=== PATIENT | female | born 1960 | race Caucasian/White ===

== ENCOUNTER 2017-05-21 04:28 | Inpatient (IN) | payer MEDICARE, OTHER ==
[~2017-05-21] VITALS: Ht 170.2 cm; Wt 89.1 kg
[2017-05-21] MEDS ORDERED: IPRATROPIUM BROMIDE 0.02% 2.5 ML NEB NEB STA (04:47)
[2017-05-21] MEDS ORDERED: ALBUTEROL SULF 0.083% NEB SOLN 3 ML NEB NEB STA (04:47)
[2017-05-21] MEDS ORDERED: METHYLPREDNISOLONE SOD SUCC 125 MG/2ML VIAL IV STA (04:56)
[2017-05-21] MEDS ORDERED: ASPIRIN 81 MG CHEW TAB PO ONE (05:00)
[2017-05-21] MEDS ORDERED: NITROGLYCERIN 2% OINT 1 GM PKT TOP ONE (05:00)
[2017-05-21 05:23] LABS: BASOPHILS # (AUTO) 0.1 (0.0-0.1); BASOPHILS % 0.9 % (0.0-1.0); EOSINOPHILS # (AUTO) 0.5 (0.0-0.4); EOSINOPHILS % 3.5 % (0.0-6.0); HEMOGLOBIN 12.9 g/dL (12.0-16.0); LYMPHOCYTES # (AUTO) 1.5 (1.0-3.2); LYMPHOCYTES % 10.1 % (18.0-39.1); MEAN CORPUSCULAR HEMOGLOBIN 32.1 pg (28-32); MEAN CORPUSCULAR HGB CONC 33.9 g/dL (31-35); MEAN CORPUSCULAR VOLUME 94.5 fL (81-99); MONOCYTES # (AUTO) 0.6 (0.2-0.8); MONOCYTES % 3.7 % (4.4-11.3); NEUTROPHILS # (AUTO) 12.2 (2.1-6.9); NEUTROPHILS % 81.5 % (38.7-80.0); PLATELET COUNT 425 x10e3/uL (140-360); RED BLOOD COUNT 4.02 x10e6/uL (3.6-5.1); RED CELL DISTRIBUTION WIDTH 13.6 % (11.7-14.4)
[2017-05-21 05:32] LABS: INR 1.01; PROTHROMBIN TIME 12.5 seconds (11.9-14.5)
[2017-05-21 05:33] LABS: PARTIAL THROMBOPLASTIN TIME 25.5 seconds (23.8-35.5)
[2017-05-21 05:42] LABS: ALBUMIN 3.4 g/dL (3.5-5.0); ALBUMIN/GLOBULIN RATIO 0.8 (0.8-2.0); ANION GAP 17.4 mmol/L (8-16); CALCIUM 8.9 mg/dL (8.4-10.2); CREATININE, SERUM 0.97 mg/dL (0.57-1.11); MAGNESIUM 1.9 MG/DL (1.3-2.1); POTASSIUM 3.4 mmol/L (3.5-5.1)
[2017-05-21 05:44] LABS: B-TYPE NATRIURETIC PEPTIDE2 535.6 pg/mL (0-100)
[2017-05-21 05:49] LABS: CREATINE KINASE MB 2.8 ng/mL (0-5.0)
--- NOTE | 2017-05-21 06:05 | Diagnostic Imaging Report ---
EXAMINATION: CHEST SINGLE (PORTABLE) INDICATION: Shortness of breath COMPARISON: None FINDINGS: TUBES and LINES: None. LUNGS: Lungs are not well inflated. There are bibasilar atelectasis. There is perihilar interstitial opacities, consistent with interstitial edema. PLEURA: No pleural effusion or pneumothorax. HEART AND MEDIASTINUM: Cardiac size is mildly enlarged. BONES AND SOFT TISSUES: No acute osseous lesion. Soft tissues are unremarkable. UPPER ABDOMEN: No free air under the diaphragm. IMPRESSION: Mild cardiogenic pulmonary edema Signed by: Dr. Hever Multani M.D. on 05/21/2017 6:02 AM
[2017-05-21] MEDS ORDERED: FUROSEMIDE INJ 10 MG/ML 4 ML VIAL IV ONE (06:15)
[2017-05-21 06:46] LABS: BILIRUBIN,URINE NEGATIVE (NEGATIVE); CLARITY,URINE CLEAR (CLEAR); COLOR,URINE YELLOW (YELLOW); KETONES,URINE NEGATIVE (NEGATIVE); LEUKOCYTE ESTERASE ,URINE NEGATIVE (NEGATIVE); NITRITE,URINE NEGATIVE (NEGATIVE); PROTEIN,URINE DIPSTICK 2+ (NEGATIVE); URINE UROBILINOGEN 0.2 mg/dL (0.2 - 1)
[2017-05-21] MEDS: AZITHROMYCIN 500MG/NS 250 ML 250 ML IV SCH ×2 (06:52→08:29)
[2017-05-21] MEDS: CEFTRIAXONE SOD 1 GM VIAL IV SCH ×2 (06:52→18:30)
[2017-05-21] MEDS ORDERED: ONDANSETRON HCL INJ 2 MG/ML VIAL IV STA (07:01)
[2017-05-21] MEDS ORDERED: FAMOTIDINE 20 MG/2 ML VIAL IV SCH (07:15)
[2017-05-21] MEDS ORDERED: ONDANSETRON HCL INJ 2 MG/ML VIAL IV PRN (07:15)
[2017-05-21] MEDS ORDERED: POTASSIUM CHLORIDE 20 MEQ TAB CR PO STA (07:17)
[2017-05-21 07:18] LABS: EPITHELIAL CELLS,URINE RARE /LPF; WBC,URINE (MAN) 0-5 /HPF (0-5)
[2017-05-21 07:20] LABS: RBC,URINE 21-50 /HPF (0-5)
[2017-05-21 07:21] LABS: BACTERIA,URINE RARE /HPF
--- OUTSIDE RECORDS SUMMARY | 2017-05-21 07:31 | XMS REPORT ---
Author Author [facility] Address Unknown Phone Unavailable Care Team Providers Care Business Systems Analyst Name Role Phone TOÑA PERKINS Unavailable Unavailable Problems This patient has no known problems. Allergies, Adverse Reactions, Alerts This patient has no known allergies or adverse reactions. Medications This patient has no known medications. Results Test Description Test Time Test Comments Text Results Atomic Results Result Comments CHEST SINGLE (PORTABLE) [place] [address] Patient Name: AMRIK KEITH MR #: [id number] : 1960 Age/Sex: 56/F Req #: [id number] Adm Physician: Ordered by: TOÑA PERKINS MD Report #: [id number] Location: ER Room/Bed: Procedure: [id number] DX/CHEST SINGLE (PORTABLE) Exam Date: 05/21/17 Exam Time: 0525 REPORT STATUS: Signed EXAMINATION: CHEST SINGLE (PORTABLE) INDICATION: Shortness of breath COMPARISON: None FINDINGS: TUBES and LINES: None. LUNGS: Lungs are not well inflated. There are bibasilar atelectasis. There is perihilar interstitial opacities, consistent with interstitial edema. PLEURA: No pleural effusion or pneumothorax. HEART AND MEDIASTINUM: Cardiac size is mildly enlarged. BONES AND SOFT TISSUES: No acute osseous lesion. Soft tissues are unremarkable. UPPER ABDOMEN: No free air under the diaphragm. IMPRESSION: Mild cardiogenic pulmonary edema Signed by: Dr. Hever Multani M.D. on 05/21/2017 6:02 AM Dictated By: HEVER ECKERT MD 1 Transcribed By: LINDA on 05/21/17601 COPY TO: TOÑA PERKINS MD
[2017-05-21] MEDS ORDERED: DEXTROSE 50% SYRINGE 50 ML IV PRN (07:45)
[2017-05-21] MEDS: INSULIN REGULAR, HUMAN 100 UNIT/1 ML 3ML VIAL SQ SCH ×4 (08:14→21:37)
--- NOTE | 2017-05-21 08:25 | History and Physical ---
PRIMARY CARE PHYSICIAN: Dr. Dotson CHIEF COMPLAINT: Shortness of breath and cough. HISTORY OF PRESENT ILLNESS: This is a 56-year-old woman with a history of diabetes mellitus and diabetic ophthalmopathy with legal blindness, now developing shortness of breath while ambulating. She does have left above-knee amputation and ambulates by wheelchair. She has had a cough for a few days but no leg edema. She denies any chest pain. She is admitted for further evaluation and management. PAST MEDICAL HISTORY 1. Diabetes mellitus, type 2. 2. Hypertension. 3. Diabetic ophthalmopathy with legal blindness. 4. Peripheral vascular disease, status post left above-knee amputation. 5. Asthma. 6. Allergic rhinitis. PAST SURGICAL HISTORY 1. Above-knee amputation, left leg. 2. Tonsillectomy. ALLERGIES: PER ELECTRONIC MEDICAL RECORD. FAMILY HISTORY AND SOCIAL HISTORY: The patient is a . She has 3 children. Occasional alcohol. Currently on Chantix for cigarette cessation, but she continues to smoke cigarettes. MEDICATIONS: Per electronic medical record. REVIEW OF SYSTEMS: Denies any dizziness. PHYSICAL EXAMINATION VITAL SIGNS: Reviewed. GENERAL APPEARANCE: Tired-appearing woman resting in bed. HEENT: Anicteric. CARDIOVASCULAR: Normal S1 and S2. LUNGS: Breath sounds are reduced throughout. No wheezing. ABDOMEN: Soft, nontender, nondistended. EXTREMITIES: She has a left above-knee amputation, well healed. Right leg: She has no edema. She has a lot of dirt on the right foot sole. SKIN: Dry. PSYCHIATRIC: Normal affect. LABS: Reviewed. MEDICATIONS: Reviewed. ASSESSMENT AND PLAN: This is a 56-year-old woman. 1. Cardiogenic pulmonary edema. Will diurese the patient. Will obtain a 2-D echocardiogram. 2. Acute asthma exacerbation. Will treat the patient with nebs, steroids, antibiotics, antitussive medications. 3. Hypokalemia. Replace and recheck. 4. Acute kidney injury. Will reassess renal function later today. 5. Diabetes mellitus, type 2. Will get hemoglobin A1c and lipid panel and use sliding-scale insulin. 6. Elevated B-type natriuretic peptide/congestive heart failure. Will obtain echocardiogram and follow up. 7. Influenza screen negative. 8. Ambulatory dysfunction. Will consult physical therapy. 9. Prophylaxis. Will use Lovenox and Pepcid. 10. Disposition: Monitor closely. Follow up echo. Job#: [id number] MH
[2017-05-21] MEDS: ASPIRIN 325 MG TAB EC PO SCH (08:28)
[2017-05-21] MEDS: LORATADINE 10 MG TAB PO SCH (09:25)
[2017-05-21] MEDS: BENZONATATE 100 MG CAP PO SCH ×3 (09:25→20:48)
[2017-05-21 10:50] VITALS: BP 150/89
[2017-05-21] MEDS ORDERED: CHANTIX1 MG PO (11:32)
[2017-05-21] MEDS ORDERED: GABAPENTIN300 MG PO (11:32)
[2017-05-21] MEDS ORDERED: METHADONE HCL10 MG PO (11:32)
[2017-05-21] MEDS ORDERED: NORCO 10-325 T1 EACH PO (11:32)
[2017-05-21] MEDS ORDERED: LISINOPRIL10 MG PO (11:32)
[2017-05-21] MEDS ORDERED: PLAVIX75 MG PO (11:32)
[2017-05-21] MEDS ORDERED: ZOLOFT50 MG PO (11:32)
[2017-05-21] MEDS ORDERED: HUMALOG100 UNIT/1 SQ (11:32)
[2017-05-21] MEDS ORDERED: LANTUS 3ML100 UNITS/ SQ (11:32)
[2017-05-21] MEDS ORDERED: ASPIRIN81 MG PO (11:32)
[2017-05-21] MEDS: NITROGLYCERIN 2% OINT 1 GM PKT TOP SCH ×2 (14:00→18:00)
[2017-05-21] MEDS: HYDROCODONE/APAP 10MG-325MG TAB PO PRN ×2 (14:25→20:50)
[2017-05-21] MEDS: METHYLPREDNISOLONE SOD SUCC 125 MG/2ML VIAL IV SCH ×2 (14:30→20:50)
[2017-05-21] MEDS: GUAIFENESIN/DEXTROMETHORPHAN LIQD 5 ML UDC NG SCH ×2 (14:30→22:00)
[2017-05-21 15:33] LABS: CREATINE KINASE MB 4.6 ng/mL (0-5.0)
[2017-05-21 16:13] VITALS: BP 184/98
[2017-05-21] MEDS ORDERED: NON-FORMULARY MEDICATION (Insulin Lispro (Humalog) 10 UNITS) SQ SCH (16:30)
[2017-05-21] MEDS ORDERED: INSULIN LISPRO 100 UNIT/1 ML 3ML VIAL SQ SCH (16:30)
[2017-05-21] MEDS: FAMOTIDINE 20 MG TAB PO SCH (16:30)
[2017-05-21] MEDS: ENOXAPARIN SOD INJ 40 MG/0.4 ML SYR SC SCH (17:00)
[2017-05-21] MEDS: METHADONE HCL 10 MG TAB PO SCH ×3 (17:00→20:24)
[2017-05-21] MEDS: ASPIRIN 81 MG CHEW TAB PO SCH (17:00)
[2017-05-21] MEDS: GABAPENTIN 300 MG CAP PO SCH (17:00)
[2017-05-21] MEDS: ALBUTEROL SULF 0.083% NEB SOLN 3 ML NEB NEB SCH (19:45)
[2017-05-21] MEDS: IPRATROPIUM BROMIDE 0.02% 2.5 ML NEB NEB SCH (19:45)
[2017-05-21 20:00] VITALS: BP 189/109
[2017-05-21] MEDS: SERTRALINE HCL 50 MG TAB PO SCH (20:49)
[2017-05-21] MEDS ORDERED: INSULIN DETEMIR 100 UNIT/ML PEN SQ SCH (21:00)
[2017-05-21 23:29] VITALS: BP 189/109
[2017-05-22] VITALS (7 sets, daily range): BP systolic 98–207; BP diastolic 68–156
[2017-05-22] MEDS: IPRATROPIUM BROMIDE 0.02% 2.5 ML NEB NEB SCH ×7 (00:15→23:00)
[2017-05-22] MEDS: ALBUTEROL SULF 0.083% NEB SOLN 3 ML NEB NEB SCH ×7 (00:15→23:00)
[2017-05-22] MEDS: ATENOLOL 50 MG TAB PO PRN ×2 (00:40→05:42)
[2017-05-22] MEDS: NITROGLYCERIN 2% OINT 1 GM PKT TOP SCH ×4 (00:41→17:18)
[2017-05-22] MEDS: PROMETHAZINE 12.5MG/ NACL 0.9% 12.5 MG/50 ML BAG IV PRN ×2 (00:41→06:30)
[2017-05-22] MEDS: HYDROCODONE/APAP 10MG-325MG TAB PO PRN (02:40)
[2017-05-22] MEDS: METHYLPREDNISOLONE SOD SUCC 125 MG/2ML VIAL IV SCH ×3 (05:41→21:45)
[2017-05-22] MEDS: GUAIFENESIN/DEXTROMETHORPHAN LIQD 5 ML UDC NG SCH ×3 (05:41→21:46)
[2017-05-22] MEDS: CEFTRIAXONE SOD 1 GM VIAL IV SCH ×2 (05:41→18:19)
[2017-05-22 07:00] LABS: BASOPHILS % 0.2 % (0.0-1.0); HEMATOCRIT 37.5 % (34.2-44.1); HEMOGLOBIN 12.6 g/dL (12.0-16.0); LYMPHOCYTES # (AUTO) 0.8 (1.0-3.2); LYMPHOCYTES % 4.6 % (18.0-39.1); MEAN CORPUSCULAR HGB CONC 33.6 g/dL (31-35); MEAN CORPUSCULAR VOLUME 95.2 fL (81-99); MONOCYTES # (AUTO) 0.4 (0.2-0.8); MONOCYTES % 2.4 % (4.4-11.3); NEUTROPHILS # (AUTO) 16.5 (2.1-6.9); NEUTROPHILS % 92.1 % (38.7-80.0); PLATELET COUNT 447 x10e3/uL (140-360); RED BLOOD COUNT 3.94 x10e6/uL (3.6-5.1); RED CELL DISTRIBUTION WIDTH 13.4 % (11.7-14.4)
[2017-05-22] MEDS ORDERED: SODIUM CHLORIDE 0.45% 1,000 ML IV ONE (07:15)
--- NOTE | 2017-05-22 07:24 | Progress Note ---
DATE: May 22, 2017 ADDENDUM Creatinine kinase has increased from [address] up to 1770. This is acute rhabdomyolysis. Will treat her IV fluids. Job#: [id number] MALINDA
[2017-05-22 07:39] LABS: ALANINE AMINOTRANSFERASE 21 IU/L (0-55); ALBUMIN 3.3 g/dL (3.5-5.0); ALBUMIN/GLOBULIN RATIO 0.8 (0.8-2.0); ALKALINE PHOSPHATASE 80 IU/L (40-150); BLOOD UREA NITROGEN 27 mg/dL (7-26); BUN/CREATININE RATIO 31 (6-25); CALCIUM 9.5 mg/dL (8.4-10.2); CARBON DIOXIDE 25 mmol/L (22-29); CHLORIDE 102 mmol/L (98-107); CHOL/HDL RATIO 5.2 (3.0-3.6); CHOLESTEROL 241 MD/DL (0-199); CREATININE, SERUM 0.88 mg/dL (0.57-1.11); EST GLOMERULAR FILTRATION RATE > 60 ML/MIN (60-); GLUCOSE 210 mg/dL (74-118); HDL CHOLESTEROL 46 MG/DL (40-60); LDL CHOLESTEROL 164 MG/DL (60-130); SODIUM 138 mmol/L (136-145); TRIGLYCERIDES 153 MG/DL (0-149)
[2017-05-22] MEDS ORDERED: INSULIN DETEMIR 100 UNIT/ML PEN SQ SCH (09:00)
[2017-05-22] MEDS: METHADONE HCL 10 MG TAB PO SCH (09:00)
[2017-05-22] MEDS: NIFEDIPINE CR 30 MG TAB PO SCH ×3 (09:58→21:45)
[2017-05-22] MEDS: LABETALOL HCL 100 MG TAB PO SCH ×3 (09:58→21:46)
[2017-05-22] MEDS: INSULIN LISPRO 100 UNIT/1 ML 3ML VIAL SQ SCH ×3 (09:59→16:30)
[2017-05-22] MEDS: FAMOTIDINE 20 MG TAB PO SCH ×2 (09:59→17:17)
[2017-05-22] MEDS: VARENICLINE 1 MG TAB PO SCH ×2 (10:00→12:40)
[2017-05-22] MEDS: GUAIFENESIN 600MG/DEXTROMETHORPHAN 30MG TABSR PO SCH ×2 (10:00→17:17)
[2017-05-22] MEDS: GABAPENTIN 300 MG CAP PO SCH ×2 (10:00→17:17)
[2017-05-22] MEDS: ASPIRIN 81 MG CHEW TAB PO SCH ×2 (10:00→17:17)
[2017-05-22] MEDS: LORATADINE 10 MG TAB PO SCH (10:00)
[2017-05-22] MEDS: ASPIRIN 325 MG TAB EC PO SCH (10:00)
[2017-05-22] MEDS: INSULIN REGULAR, HUMAN 100 UNIT/1 ML 3ML VIAL SQ SCH ×4 (10:00→21:00)
[2017-05-22] MEDS: AZITHROMYCIN 500MG/NS 250 ML 250 ML IV SCH (10:00)
[2017-05-22] MEDS: CLOPIDOGREL BISULFATE 75 MG TAB PO SCH (10:00)
[2017-05-22] MEDS: INSULIN DETEMIR 100 UNIT/ML PEN SQ SCH ×2 (10:01→22:00)
[2017-05-22] MEDS: BENZONATATE 100 MG CAP PO SCH ×3 (10:01→21:46)
--- NOTE | 2017-05-22 11:24 | Progress Note ---
DATE: May 22, 2017 TIME: 7:03 a.m. OVERNIGHT: Elevated blood pressure and headache. REVIEW OF SYSTEMS: Denies any dizziness. She also has some nausea and vomiting. PHYSICAL EXAMINATION VITAL SIGNS: Have been reviewed. GENERAL: A tired-appearing woman resting in bed. HEENT: Anicteric. CARDIOVASCULAR: Normal S1 and S2. LUNGS: Moderate breath sounds. ABDOMEN: Soft, nontender and nondistended. EXTREMITIES: She has a left above-knee amputation well-healed. She has right leg with no edema. SKIN: Dry. PSYCHIATRIC: Normal affect. LABS: Reviewed. MEDICATIONS: Reviewed. ASSESSMENT: A 56-year-old woman with: 1. Hypertensive emergency with headache: Will change beta ramirez and add calcium channel ramirez. 2. Acute exacerbation of asthma: Continue medication regimen and reduce steroids. Continue nebs and antibiotics, and other medications. Continue antitussive medications. 3. Nausea: Continue Phenergan. 4. Hypokalemia: Continue to replace and recheck. 5. Acute kidney injury: Follow up labs. 6. Diabetes mellitus, type 2: Follow up hemoglobin A1c and lipid panel. 7. Elevated BNP/congestive heart failure: Follow up echocardiogram. 8. Influenza screen negative. 9. Ambulatory dysfunction: Continue physical therapy. PLAN 1. Continue medication regimen. 2. Control blood pressure. 3. Follow up echocardiogram. 4. Follow up labs. Job#: [id number] MALINDA
[2017-05-22] MEDS: ENOXAPARIN SOD INJ 40 MG/0.4 ML SYR SC SCH (17:17)
[2017-05-22] MEDS: SERTRALINE HCL 50 MG TAB PO SCH (21:46)
[2017-05-23] VITALS (9 sets, daily range): BP systolic 111–157; BP diastolic 54–87
[2017-05-23] MEDS: NITROGLYCERIN 2% OINT 1 GM PKT TOP SCH ×4 (01:00→17:21)
[2017-05-23] MEDS: IPRATROPIUM BROMIDE 0.02% 2.5 ML NEB NEB SCH ×6 (03:00→23:30)
[2017-05-23] MEDS: ALBUTEROL SULF 0.083% NEB SOLN 3 ML NEB NEB SCH ×6 (03:00→23:30)
[2017-05-23] MEDS: CEFTRIAXONE SOD 1 GM VIAL IV SCH ×2 (06:32→18:33)
[2017-05-23] MEDS: GUAIFENESIN/DEXTROMETHORPHAN LIQD 5 ML UDC NG SCH ×3 (06:32→21:15)
[2017-05-23] MEDS: INSULIN LISPRO 100 UNIT/1 ML 3ML VIAL SQ SCH ×3 (07:30→16:30)
[2017-05-23 09:15] LABS: BASOPHILS % 0.1 % (0.0-1.0); HEMOGLOBIN 11.2 g/dL (12.0-16.0); LYMPHOCYTES # (AUTO) 1.1 (1.0-3.2); LYMPHOCYTES % 7.2 % (18.0-39.1); MEAN CORPUSCULAR HEMOGLOBIN 31.6 pg (28-32); MEAN CORPUSCULAR HGB CONC 32.9 g/dL (31-35); MONOCYTES # (AUTO) 0.6 (0.2-0.8); NEUTROPHILS # (AUTO) 13.2 (2.1-6.9); NEUTROPHILS % 88.2 % (38.7-80.0); PLATELET COUNT 328 x10e3/uL (140-360); RED BLOOD COUNT 3.54 x10e6/uL (3.6-5.1); RED CELL DISTRIBUTION WIDTH 13.7 % (11.7-14.4)
[2017-05-23] MEDS: SODIUM CHLORIDE 0.9% 1000ML 1,000 ML IV SCH ×2 (09:33→17:19)
[2017-05-23] MEDS: VARENICLINE 1 MG TAB PO SCH ×2 (09:34→12:20)
[2017-05-23] MEDS: FAMOTIDINE 20 MG TAB PO SCH ×2 (09:34→16:43)
[2017-05-23] MEDS: AZITHROMYCIN 500MG/NS 250 ML 250 ML IV SCH (09:34)
[2017-05-23] MEDS: ASPIRIN 81 MG CHEW TAB PO SCH ×2 (09:34→16:43)
[2017-05-23] MEDS: LORATADINE 10 MG TAB PO SCH (09:34)
[2017-05-23] MEDS: METHYLPREDNISOLONE SOD SUCC 125 MG/2ML VIAL IV SCH ×2 (09:34→21:13)
[2017-05-23] MEDS: ASPIRIN 325 MG TAB EC PO SCH (09:34)
[2017-05-23] MEDS: GUAIFENESIN 600MG/DEXTROMETHORPHAN 30MG TABSR PO SCH ×2 (09:35→16:44)
[2017-05-23] MEDS: CLOPIDOGREL BISULFATE 75 MG TAB PO SCH (09:35)
[2017-05-23] MEDS: GABAPENTIN 300 MG CAP PO SCH ×2 (09:35→16:44)
[2017-05-23] MEDS: METHADONE HCL 10 MG TAB PO SCH ×2 (09:35→16:43)
[2017-05-23] MEDS: NIFEDIPINE CR 30 MG TAB PO SCH ×2 (09:39→21:13)
[2017-05-23] MEDS: BENZONATATE 100 MG CAP PO SCH ×3 (09:39→21:13)
[2017-05-23] MEDS: LABETALOL HCL 100 MG TAB PO SCH ×2 (09:39→21:14)
[2017-05-23] MEDS: INSULIN REGULAR, HUMAN 100 UNIT/1 ML 3ML VIAL SQ SCH ×4 (10:01→21:15)
--- NOTE | 2017-05-23 12:55 | Progress Note ---
DATE: May 23, 2017 TIME: 8:15 a.m. OVERNIGHT: No events. The patient is short of breath. REVIEW OF SYSTEMS: Denies any dizziness. VITAL SIGNS: Reviewed. PHYSICAL EXAMINATION GENERAL: A tired-appearing woman resting in bed. HEENT: Anicteric. CARDIOVASCULAR: Normal S1 and S2. LUNGS: Moderate breath sounds. ABDOMEN: Soft, nontender and nondistended. EXTREMITIES: She has a left above-knee amputation. Right leg has no edema. SKIN: Dry. PSYCHIATRIC: Normal affect. LABS: Reviewed. MEDICATIONS: Reviewed. ASSESSMENT: A 56-year-old woman. 1. Hypertensive emergency with headache. 2. Acute exacerbation of asthma. 3. Nausea. 4. Hypokalemia. 5. Acute kidney injury. 6. Diabetes mellitus, type 2. Hemoglobin A1c 5.3, LDL 164, triglycerides 153. 7. Ambulatory dysfunction. 8. Influenza screening negative. PLAN 1. Reduce steroids to 20 mg of Solu-Medrol q.12 h. 2. Continue antitussive medications. 3. Continue Plavix. 4. Continue antibiotics. 5. All cultures remain negative. 6. Glucose is somewhat controlled. 7. Follow up creatine kinase level, which has been improving. 8. Continue IV fluids. 9. Discharge planning. Possible discharge tomorrow if labs continue to improve. She will need home health and home physical therapy. She wants to be discharged to her home. Job#: [id number]
[2017-05-23] MEDS: ENOXAPARIN SOD INJ 40 MG/0.4 ML SYR SC SCH (16:44)
[2017-05-23] MEDS: INSULIN DETEMIR 100 UNIT/ML PEN SQ SCH (21:13)
[2017-05-23] MEDS: SERTRALINE HCL 50 MG TAB PO SCH (21:14)
[2017-05-24] VITALS (8 sets, daily range): BP systolic 141–187; BP diastolic 68–96
[2017-05-24] MEDS: NITROGLYCERIN 2% OINT 1 GM PKT TOP SCH ×3 (00:51→12:49)
[2017-05-24] MEDS: IPRATROPIUM BROMIDE 0.02% 2.5 ML NEB NEB SCH ×5 (03:00→18:55)
[2017-05-24] MEDS: ALBUTEROL SULF 0.083% NEB SOLN 3 ML NEB NEB SCH ×5 (03:00→18:55)
[2017-05-24] MEDS: SODIUM CHLORIDE 0.9% 1000ML 1,000 ML IV SCH ×2 (03:05→22:43)
[2017-05-24] MEDS: GUAIFENESIN/DEXTROMETHORPHAN LIQD 5 ML UDC NG SCH ×3 (05:45→21:07)
[2017-05-24] MEDS: CEFTRIAXONE SOD 1 GM VIAL IV SCH ×2 (05:45→18:08)
[2017-05-24] MEDS: INSULIN REGULAR, HUMAN 100 UNIT/1 ML 3ML VIAL SQ SCH ×4 (07:30→20:45)
[2017-05-24] MEDS: INSULIN LISPRO 100 UNIT/1 ML 3ML VIAL SQ SCH ×3 (07:30→16:30)
[2017-05-24] MEDS: FAMOTIDINE 20 MG TAB PO SCH ×2 (07:55→16:30)
[2017-05-24] MEDS: VARENICLINE 1 MG TAB PO SCH ×2 (08:08→12:49)
[2017-05-24] MEDS: GABAPENTIN 300 MG CAP PO SCH ×2 (09:03→17:11)
[2017-05-24] MEDS: LORATADINE 10 MG TAB PO SCH (09:03)
[2017-05-24] MEDS: CLOPIDOGREL BISULFATE 75 MG TAB PO SCH (09:03)
[2017-05-24] MEDS: ASPIRIN 81 MG CHEW TAB PO SCH ×2 (09:03→17:11)
[2017-05-24] MEDS: METHYLPREDNISOLONE SOD SUCC 125 MG/2ML VIAL IV SCH ×2 (09:03→20:44)
[2017-05-24] MEDS: AZITHROMYCIN 500MG/NS 250 ML 250 ML IV SCH (09:03)
[2017-05-24] MEDS: GUAIFENESIN 600MG/DEXTROMETHORPHAN 30MG TABSR PO SCH ×2 (09:03→17:11)
[2017-05-24] MEDS: NIFEDIPINE CR 30 MG TAB PO SCH ×2 (09:03→20:44)
[2017-05-24] MEDS: ASPIRIN 325 MG TAB EC PO SCH (09:03)
[2017-05-24] MEDS: BENZONATATE 100 MG CAP PO SCH ×3 (09:03→20:44)
[2017-05-24] MEDS: LABETALOL HCL 100 MG TAB PO SCH ×2 (09:04→20:45)
[2017-05-24] MEDS: METHADONE HCL 10 MG TAB PO SCH ×2 (09:05→17:00)
--- NOTE | 2017-05-24 16:26 | Progress Note ---
DATE: May 24, 2017 TIME: 01:10 p.m. MEDICINE PROGRESS NOTE OVERNIGHT: No acute events. SUBJECTIVE REVIEW OF SYSTEMS: Patient denies nausea, vomiting, diarrhea, or chest pain. Patient continues with shortness of breath and productive cough. HPI: This patient presented on May 21 with a history of DM and diabetic ophthalmopathy with shortness of breath during ambulation. She does have left AKA and gets around on a wheelchair. She had a cough for a few days but without leg edema. Past history includes DM type 2, hypertension, diabetes ophthalmopathy with legal blindness, PVD status post left AKA, asthma, and allergic rhinitis. Following presentation, the patient was admitted for treatment here via the ER. PHYSICAL EXAMINATION VITAL SIGNS: T 98.2, P 71, respirations 16, BP 144/82, and 95 pulse ox on room air. GENERAL: This is a very tired appearing female, sitting on side of bed. HEENT: Atraumatic. No sinus tenderness and no oral lesions present. CARDIOVASCULAR: Distal S1 and S2, faint with regular rate. No murmur appreciated; however, exam is limited. LUNGS: Bilateral breath sounds with coarse crackles that clear somewhat on cough. ABDOMEN: Soft, nontender, and not distended. EXTREMITIES: Left AKA amputation, right leg without edema at this day. SKIN: Dry and intact. PSYCHIATRIC: Normal effect. LABS: WBC yesterday a.m. 14.9, H and H 11.2 and 34 with platelets of 328. MEDICATIONS: Reviewed. ASSESSMENT AND PLAN: This is a 56-year-old female with: 1. Hypertensive emergency with headache. Patient is being treated with nitroglycerin ointment, switched to a patch this day per patient request, labetalol 150 q.12 hours, Procardia XL 30 p.o. q.12 hours, and aspirin. 2. Acute exacerbation of asthma: Patient is being provided with steroids, which is 20 mg Solu-Medrol q.12. Additionally, the patient has antitussive medications and loratadine. 3. Nausea, p.r.n. pain medications. 4. Hypokalemia, follow up CMP in the a.m. 5. Acute kidney injury: We will continue IV fluids. 6. Diabetes mellitus type 2: Admission hemoglobin A1c was 5.3. Lipid panel noted. 7. Ambulatory dysfunction: Patient will benefit from physical therapy at home. 8. Prophylaxis: Plavix and aspirin. 9. Disposition: Discharge planning for home health and home physical therapy. Patient desires to be discharged home. We will obtain labs and assess for appropriateness. Job#: [id number] GABRIELA
[2017-05-24] MEDS: ENOXAPARIN SOD INJ 40 MG/0.4 ML SYR SC SCH (17:11)
[2017-05-24] MEDS: SERTRALINE HCL 50 MG TAB PO SCH (20:45)
[2017-05-24] MEDS: INSULIN DETEMIR 100 UNIT/ML PEN SQ SCH (20:46)
[2017-05-25] VITALS (7 sets, daily range): BP systolic 155–196; BP diastolic 72–99
[2017-05-25] MEDS: IPRATROPIUM BROMIDE 0.02% 2.5 ML NEB NEB SCH ×6 (00:15→19:30)
[2017-05-25] MEDS: ALBUTEROL SULF 0.083% NEB SOLN 3 ML NEB NEB SCH ×6 (00:15→19:30)
[2017-05-25] MEDS: CEFTRIAXONE SOD 1 GM VIAL IV SCH ×2 (06:05→17:47)
[2017-05-25] MEDS: GUAIFENESIN/DEXTROMETHORPHAN LIQD 5 ML UDC NG SCH ×3 (06:05→21:17)
[2017-05-25] MEDS: INSULIN REGULAR, HUMAN 100 UNIT/1 ML 3ML VIAL SQ SCH ×4 (07:30→21:16)
[2017-05-25] MEDS: FAMOTIDINE 20 MG TAB PO SCH ×2 (07:30→16:30)
[2017-05-25] MEDS: INSULIN LISPRO 100 UNIT/1 ML 3ML VIAL SQ SCH ×3 (07:30→16:30)
[2017-05-25] MEDS: VARENICLINE 1 MG TAB PO SCH ×2 (08:00→12:29)
[2017-05-25] MEDS ORDERED: NITROGLYCERIN 0.1MG/HR PATCH TOP SCH (09:00)
[2017-05-25] MEDS: LORATADINE 10 MG TAB PO SCH (09:14)
[2017-05-25] MEDS: METHYLPREDNISOLONE SOD SUCC 125 MG/2ML VIAL IV SCH ×2 (09:14→21:15)
[2017-05-25] MEDS: ASPIRIN 325 MG TAB EC PO SCH (09:14)
[2017-05-25] MEDS: AZITHROMYCIN 500MG/NS 250 ML 250 ML IV SCH (09:14)
[2017-05-25] MEDS: ASPIRIN 81 MG CHEW TAB PO SCH ×2 (09:14→17:28)
[2017-05-25] MEDS: BENZONATATE 100 MG CAP PO SCH ×3 (09:15→21:16)
[2017-05-25] MEDS: LABETALOL HCL 100 MG TAB PO SCH ×2 (09:15→21:16)
[2017-05-25] MEDS: CLOPIDOGREL BISULFATE 75 MG TAB PO SCH (09:15)
[2017-05-25] MEDS: GABAPENTIN 300 MG CAP PO SCH ×2 (09:15→17:28)
[2017-05-25] MEDS: GUAIFENESIN 600MG/DEXTROMETHORPHAN 30MG TABSR PO SCH ×2 (09:15→17:28)
[2017-05-25] MEDS: NIFEDIPINE CR 30 MG TAB PO SCH ×2 (09:15→21:15)
[2017-05-25] MEDS: METHADONE HCL 10 MG TAB PO SCH ×2 (09:16→17:00)
--- NOTE | 2017-05-25 11:09 | Progress Note ---
DATE: May 25, 2017 TIME: 10:15 a.m. MEDICINE PROGRESS NOTE OVERNIGHT: No acute events. SUBJECTIVE/REVIEW OF SYSTEMS: The patient denies nausea, vomiting, diarrhea, or chest pain. Continues with shortness of breath and productive cough particularly upon exertion. PHYSICAL EXAMINATION VITAL SIGNS: T 96.8, pulse 72, respirations 16, BP 163/99. GENERAL: This is a very tired-appearing female lying in bed this a.m. HEENT: Normocephalic. No sinus tenderness. No oral lesions present. CARDIOVASCULAR: Distant S1 and S2 appreciated. Faint with regular rate. Exam is limited due to adventitious lung sounds. LUNGS: Bilateral breath sounds with coarse crackles that clear somewhat on cough. ABDOMEN: Soft, nontender and nondistended. EXTREMITIES: Left above-knee amputation. Right leg without edema while lying supine. SKIN: Dry and intact. PSYCHIATRIC: Normal affect. LABS: Results pending. MEDICATIONS: Reviewed. ASSESSMENT AND PLAN: This is a 56-year-old female with: 1. Hypertensive emergency with headache: The patient switched from nitroglycerin to patch yesterday. Medications per MAY. However, we will increase her calcium channel ramirez this day due to elevation and findings. 2. Acute exacerbation of asthma: Steroids, antitussive medications and loratadine. 3. Nausea: P.r.n. medications. 4. Hypokalemia: Follow up CMP. Results still pending. 5. Acute kidney injury: Intravenous fluids. 6. Diabetes mellitus: Hemoglobin A1c on admission was 5.3. Lipid panel reviewed. 7. Ambulatory dysfunction: Physical therapy assessed yesterday. Note reviewed. 8. Prophylaxis: Plavix and aspirin. Discharge planning for home health and home physical therapy initiated per case management before discharge home. The patient has a list of home health and is making a decision. Lab results pending this day. DICTATED BY LUCY GUALLPA NP Job#: [id number] MALINDA
[2017-05-25 11:13] LABS: BASOPHILS % 0.3 % (0.0-1.0); EOSINOPHILS # (AUTO) 0.2 (0.0-0.4); EOSINOPHILS % 1.5 % (0.0-6.0); HEMATOCRIT 34.5 % (34.2-44.1); HEMOGLOBIN 11.4 g/dL (12.0-16.0); LYMPHOCYTES # (AUTO) 1.1 (1.0-3.2); LYMPHOCYTES % 11.3 % (18.0-39.1); MEAN CORPUSCULAR HEMOGLOBIN 31.8 pg (28-32); MEAN CORPUSCULAR VOLUME 96.1 fL (81-99); MONOCYTES # (AUTO) 0.4 (0.2-0.8); MONOCYTES % 4.1 % (4.4-11.3); NEUTROPHILS % 82.3 % (38.7-80.0); PLATELET COUNT 331 x10e3/uL (140-360); RED BLOOD COUNT 3.59 x10e6/uL (3.6-5.1); RED CELL DISTRIBUTION WIDTH 14.1 % (11.7-14.4)
[2017-05-25 11:38] LABS: ALANINE AMINOTRANSFERASE 20 IU/L (0-55); ALBUMIN/GLOBULIN RATIO 0.9 (0.8-2.0); ALKALINE PHOSPHATASE 58 IU/L (40-150); ANION GAP 13.3 mmol/L (8-16); BLOOD UREA NITROGEN 30 mg/dL (7-26); BUN/CREATININE RATIO 36 (6-25); CALCIUM 8.5 mg/dL (8.4-10.2); CARBON DIOXIDE 21 mmol/L (22-29); CHLORIDE 106 mmol/L (98-107); CREATININE, SERUM 0.84 mg/dL (0.57-1.11); EST GLOMERULAR FILTRATION RATE > 60 ML/MIN (60-); GLUCOSE 174 mg/dL (74-118); POTASSIUM 4.3 mmol/L (3.5-5.1); SODIUM 136 mmol/L (136-145)
[2017-05-25] MEDS: ENOXAPARIN SOD INJ 40 MG/0.4 ML SYR SC SCH (17:28)
[2017-05-25] MEDS: SERTRALINE HCL 50 MG TAB PO SCH (21:16)
[2017-05-25] MEDS: INSULIN DETEMIR 100 UNIT/ML PEN SQ SCH (21:16)
[2017-05-26] VITALS: BP 161/83
[2017-05-26] MEDS: ALBUTEROL SULF 0.083% NEB SOLN 3 ML NEB NEB SCH ×3 (03:00→07:54)
[2017-05-26] MEDS: IPRATROPIUM BROMIDE 0.02% 2.5 ML NEB NEB SCH ×3 (03:00→07:54)
[2017-05-26 04:15] VITALS: BP 149/72
[2017-05-26] MEDS: CEFTRIAXONE SOD 1 GM VIAL IV SCH (06:24)
[2017-05-26] MEDS: SODIUM CHLORIDE 0.9% 1000ML 1,000 ML IV SCH (06:24)
[2017-05-26] MEDS: GUAIFENESIN/DEXTROMETHORPHAN LIQD 5 ML UDC NG SCH (06:24)
[2017-05-26] MEDS ORDERED: NIFEDIPINE ER30 M1 PO (06:35)
[2017-05-26] MEDS ORDERED: LABETALOL HCL100 MG PO (06:35)
[2017-05-26] MEDS ORDERED: Guaifenesin/Dextromethorphan NG (06:35)
[2017-05-26] MEDS ORDERED: AZITHROMYC200 MG/5 M PO (06:35)
[2017-05-26] MEDS ORDERED: LORATADINE10 MG PO (06:35)
[2017-05-26] MEDS ORDERED: TESSALON PERLE100 MG PO (06:35)
[2017-05-26] MEDS ORDERED: PREDNISONE20 MG PO (06:35)
[2017-05-26] MEDS: INSULIN REGULAR, HUMAN 100 UNIT/1 ML 3ML VIAL SQ SCH (07:40)
[2017-05-26] MEDS: INSULIN LISPRO 100 UNIT/1 ML 3ML VIAL SQ SCH (07:44)
[2017-05-26] MEDS: FAMOTIDINE 20 MG TAB PO SCH (08:15)
[2017-05-26] MEDS: VARENICLINE 1 MG TAB PO SCH (08:15)
[2017-05-26] MEDS: GABAPENTIN 300 MG CAP PO SCH (08:20)
[2017-05-26] MEDS: LORATADINE 10 MG TAB PO SCH (08:20)
[2017-05-26] MEDS: CLOPIDOGREL BISULFATE 75 MG TAB PO SCH (08:20)
[2017-05-26] MEDS: ASPIRIN 325 MG TAB EC PO SCH (08:20)
[2017-05-26] MEDS: ASPIRIN 81 MG CHEW TAB PO SCH (08:20)
[2017-05-26] MEDS: METHADONE HCL 10 MG TAB PO SCH (08:20)
[2017-05-26] MEDS: AZITHROMYCIN 500MG/NS 250 ML 250 ML IV SCH (08:20)
[2017-05-26] MEDS: LABETALOL HCL 100 MG TAB PO SCH (08:20)
[2017-05-26] MEDS: GUAIFENESIN 600MG/DEXTROMETHORPHAN 30MG TABSR PO SCH (08:20)
[2017-05-26] MEDS: NIFEDIPINE CR 30 MG TAB PO SCH (08:20)
[2017-05-26] MEDS: METHYLPREDNISOLONE SOD SUCC 125 MG/2ML VIAL IV SCH (08:20)
[2017-05-26] MEDS: BENZONATATE 100 MG CAP PO SCH (08:20)
[2017-05-26 08:35] VITALS: BP 170/81
[2017-05-26] MEDS ORDERED: NITROGLYCERIN 0.2 MG/HR PATCH TOP SCH (09:00)
--- NOTE | 2017-05-31 00:23 | Discharge Summary ---
PRINCIPAL DIAGNOSES 1. Hypertensive urgency with headache. 2. Acute exacerbation of asthma. 3. Hypokalemia. 4. Acute kidney injury. 5. Diabetes mellitus, type 2. Hemoglobin A1c 5.3, LDL 164 and triglycerides 153. 6. Ambulatory dysfunction. SECONDARY DIAGNOSIS: Diabetes mellitus, type 2. CHIEF COMPLAINT: Shortness of breath and cough. HISTORY OF PRESENT ILLNESS: This is a 56-year-old woman developing shortness of breath and cough. Refer to the H and P for further details. HOSPITAL COURSE: The patient was found to have acute exacerbation of asthma. She was treated with steroids and antibiotics. She also had hypertensive emergency with headache. This was treated with medication regimen. She had hypokalemia and acute kidney injury, which improved. She had diabetes mellitus, type 2. Hemoglobin A1c 5.3, LDL 164 and triglycerides 143. For ambulatory dysfunction, received physical therapy. Influenza screening was negative. The patient is doing better and currently appropriate for discharge and follow up. DISCHARGE MEDICATIONS: Per electronic medical records and include labetalol and nifedipine, as well as prednisone and azithromycin. CONDITION ON DISCHARGE: Stable and improving. DISCHARGE LOCATION: Home with physical therapy and home health. FOLLOWUP: Primary care doctor in 1 week. NATANAEL DC MD Job#: [id number] [place]
== END 2017-05-26 12:40 | disposition home health service (06) | DRG 202 ==
LOC: ER 04:28 → ERHOLD 07:28 → UNDOADMIN 07:28 → MED/SURG3 10:29
PROVIDERS: ADMIT Internal Medicine; ATTEND Internal Medicine
DX: J45.901 Unspecified asthma with (acute) exacerbation (principal); J81.1 Chronic pulmonary edema; N17.9 Acute kidney failure, unspecified; I50.1 Left ventricular failure, unspecified; E11.9 Type 2 diabetes mellitus without complications; Z79.4 Long term (current) use of insulin; E11.319 Type 2 diabetes mellitus with unspecified diabetic retinopathy without macular edema; E11.51 Type 2 diabetes mellitus with diabetic peripheral angiopathy without gangrene; Z89.612 Acquired absence of left leg above knee; J30.9 Allergic rhinitis, unspecified; E87.6 Hypokalemia; R26.9 Unspecified abnormalities of gait and mobility; R60.0 Localized edema; F17.210 Nicotine dependence, cigarettes, uncomplicated; I11.0 Hypertensive heart disease with heart failure
CPT/HCPCS: 36415; 51700; 71045; 80053; 80061; 81001; 82550; 82553; 82948; 83036; 83605; 83735; 83880; 84484; 85025; 85610; 85730; 87040; 87086; 87400; 93005; 93306; 94640; 96367; 96372; 96374; 99284; J0456; J0696; J1650; J1940; J2405; J2550; J2930; J7030; J7799